=== PATIENT | female | born 1990 | race Hispanic/Latino ===

== ENCOUNTER 2017-04-15 16:47 | Inpatient (IN) | payer OTHER ==
[2017-04-15 17:47] VITALS: BMI 32.8
[2017-04-15] MEDS: Lactated Ringer's 1,000 ML IV SCH ×3 (21:15→23:30)
--- NOTE | 2017-04-15 21:20 | OBADHP ---
Datetime: 04/15/2017 21:09 IP Chief Complaint Other: decreased fm and oligohydramnios by sono IP Adm Impression Other: oligohydraMNIONS BY SONO Admit Comment, IP Provider: Discussed with pt about need for delivert Understands ad agreed. Cervid il orderd Extremities - PN: Normal Abdomen - PN: Abnormal Back - PN: Normal Breast - PN: Normal Lungs - PN: Normal Heart - PN: Normal Thyroid - PN: Normal Neurologic - PN: Normal HEENT - PN: Normal General - PN: Normal Presentation-Admit: Breech FHR - Baseline A Provider: 140-150 Membranes, Provider: Intact Contraction Comments Provider: irregular Comments, ACOG Physical Exam: aBD NT but gravid, ext no calf tenderness Gestation - Est Wks by US: 38.0 IP Hx Assessment: The History has been Reviewed and is Current NICHD Variability Prov Fetus A: Moderate 6-25bpm NICHD Accel Fetus A IP Provider: 10X10 NICHD Decel Fetus A IP Provider: None Dilatation, Provider: 1cm Effacement, Provider: none Station, Provider: H Genitourinary Exam: Normal DTRs - PN: Normal IP Adm Impression: Term, intrauterine IP Admit Plan: Admit to unit; Initiate labor induction protocol
[2017-04-15 21:27] LABS: BASO # 0.1 K/uL (0.0-0.2); BASO % 0.6 % (0.0-2.0); EOS % 0.4 % (0.0-4.0); HEMATOCRIT 32.8 % (34.0-47.0); LYMPH # 2.2 K/uL (1.0-4.3); LYMPH % 20.8 % (20.0-40.0); MEAN CELL VOLUME 82.1 fl (81.0-99.0); MEAN CORPUSCULAR HEMOGLOBIN 26.7 pg (27.0-31.0); MEAN CORPUSCULAR HGB CONC 32.5 g/dL (33.0-37.0); MEAN PLATELET VOLUME 10.6 fl (7.2-11.7); MONO # 0.5 K/uL (0.0-0.8); MONO % 4.5 % (0.0-10.0); NEUT # 7.7 K/uL (1.8-7.0); NEUT % 73.7 % (50.0-75.0); RED CELL DISTRIBUTION WIDTH 15.1 % (11.5-14.5); WHITE BLOOD COUNT 10.4 K/uL (4.8-10.8)
[2017-04-16] MEDS: Lactated Ringer's 1,000 ML IV SCH (07:51)
[2017-04-16] MEDS ORDERED: Oxytocin 30 UNITS in Sodium Chloride 0.9% 500 ML IV ONE (21:28)
[2017-04-16] MEDS ORDERED: Fentanyl/Bupivacaine HCl 250 ML EPI ONE (23:24)
[2017-04-17] MEDS ORDERED: Lidocaine 1% Inj (20ml) ONE (06:05)
--- NOTE | 2017-04-17 07:14 | OBDS ---
[employer] Delivery Doctor: Tabitha Muniz MD MATERNAL INFORMATION Delivery Anesthesia: Epidural Estimated Blood Loss (ml): 250cc Other Maternal Complications: oligohydramnios Provider Comments: Delivered a living baby boy appears term cried spontaneously 9/9, AF clear placenta complete and intact Episiotomy done and repaired as above, no complications Tolerated proced ure well, uterus contracted well No complications Rectal done no defects LABOR SUMMARY [facility]: 04/29/2017 00:00 No. Babies in Womb: 1 Attempted: No Labor Anesthesia: Epidural LABOR INFORMATION Reason for Induction: Oligohydramnios Onset of Labor: 04/17/2017 23:30 Complete Dilatation: 04/17/2017 05:00 Cervical Ripening Agents: Cytotec @ (Annotations: 50 mcg ) Oxytocin: Induction Group B Beta Strep: Negative Steroids Given: None Reason Steroids Not Administered: Not Applicable MEMBRANES Membranes Rupture Method: Spontaneous Rupture of Membranes: 04/16/2017 04:00 Amniotic Fluid Color: Clear Amniotic Fluid Amount: Small STAGES OF LABOR Stage 1 hrs: -18 Stage 1 min: -30 VAGINAL DELIVERY Episiotomy: Median Laceration Extension: First Degree Laceration Type: None Laceration Repair Note: A median 1-2nd dg episiotomy repaired with 2-0 chromic without any complicat ions No lacerations noted Sponge Count Correct: Yes Sharps Count Correct: Yes Count Comment: count correct and confirned CSECTION DELIVERY Primary Indication: N/A Secondary Indication: N/A CSection Incision: N/A BABY A INFORMATION Born in Route : No : N/A Forceps: N/A Vacuum Extraction: N/A Shoulder Dystocia : No PRESENTATION/POSITION BABY A Presentation: Cephalic Cephalic Presentation: Vertex INFORMATION BABY A Gestational Age at Delivery: 39.4
[2017-04-17] MEDS ORDERED: Oxycodone/Acetaminophen 5/325 mg Tab PO PRN (07:17)
[2017-04-17] MEDS ORDERED: Benzocaine/Menthol SPRAY TOP PRN ×2 (07:17→12:02)
[2017-04-17] MEDS ORDERED: Oxytocin 30 UNITS in Sodium Chloride 0.9% 500 ML IV SCH (07:45)
[2017-04-18] MEDS ORDERED: Lansinoh for Breast Feeding Mothers TP ONE (06:55)
[2017-04-18 07:49] LABS: HEMATOCRIT 29.7 % (34.0-47.0); MEAN CELL VOLUME 83.2 fl (81.0-99.0); MEAN CORPUSCULAR HEMOGLOBIN 26.4 pg (27.0-31.0); MEAN CORPUSCULAR HGB CONC 31.7 g/dL (33.0-37.0); RED CELL DISTRIBUTION WIDTH 15.4 % (11.5-14.5)
[2017-04-18 08:05] LABS: WHITE BLOOD COUNT 16.1 K/uL (4.8-10.8)
[2017-04-18] MEDS: Oxycodone/Acetaminophen 5/325 mg Tab PO PRN (10:15)
--- NOTE | 2017-04-18 10:32 | OBPPN ---
Datetime: 04/18/2017 10:27 PP Pain Prov: Within normal limits PP Nausea Prov: Denies PP Flatus Prov: Yes PP BM Prov: No PP Breasts Prov: Normal PP Heart Prov: Normal PP Lungs Prov: Normal PP Abdomen/Uterus Prov: Normal PP Lochia Prov: Normal PP Vulva/Perineum Prov: Normal PP CVA Tenderness Prov: Normal PP Extremities Prov: Normal PP Progress Prov: Normal PP Impression Prov: Normal progression PP Plan Prov: Continue present management PP Progress Note Prov: stable ppd1 continue present care IP PP Procedures: None Vital Signs Provider PP: Reviewed; Within Normal Limits
[2017-04-19] MEDS: Oxycodone/Acetaminophen 5/325 mg Tab PO PRN (02:41)
--- NOTE | 2017-04-19 10:47 | OBPPN ---
Datetime: 04/19/2017 10:39 PP Pain Prov: Within normal limits PP Pain Prov comment: No Sob, chest or leg pains PP Nausea Prov: Denies PP Flatus Prov: Yes PP Breasts Prov: Normal PP Lungs Prov: Normal PP Abdomen/Uterus Prov: Abnormal PP Lochia Prov: Normal PP Vulva/Perineum Prov: Abnormal PP CVA Tenderness Prov: Normal PP Extremities Prov: Normal PP C/S Incision Prov: Not Applicable PP Progress Prov: Normal PP Comments Phys Exam Prov: breast not engorged NT Fundus firm below the umb. NT Perineum repaired Ext no calf tenderness PP Impression Prov: Normal progression PP Plan Prov: Discharge PP Progress Note Prov: D/C home and follow up office 4-6 wks IP PP Procedures: None Vital Signs Provider PP: Reviewed
--- NOTE | 2017-04-19 10:49 | OBDCSUM ---
Datetime: 04/19/2017 10:45 Discharged to, Provider: Home Follow up at, Provider: dr Muniz Disch Instr Activity: Bedrest; May be up to bathroom; May be up for meals; May Shower Disch Instr Diet: Regular Discharge Instructions, Provider: Routine instructions given Discharge Diagnosis, Provider: Term Delivered Discharge Time: 04/19/2017 10:45 Follow up in weeks, Provider: 4-6 wks Disch Referrals: None Contraception discussed, Prov: Yes Disch Activity Restrictions: No exercising; No lifting; No driving; Minimize walking; Minimize stair -climbing; No sexual activity; Nothing in vagina - [place], tampons, douche Discharge Comment, Provider: continue PNC vit and iron and bed and pelvic rest Instructions given Discharge Diagnosis Prov Other: oligohydramnios Contraception after Delivery: Undecided
[2017-04-19 18:28] VITALS: BP 127/73; PULSE 85; RESP 20; TEMP 98.7; O2SAT 99
== END 2017-04-19 13:10 | disposition home or self-care (01) | DRG 775 ==
LOC: H.EROB2 16:47 → H.L&D 18:08 → H.OB/GYN 04-17 11:53
PROVIDERS: ADMIT Specialist; ATTEND Specialist
PROC: 4A1HXCZ Monitoring of Products of Conception, Cardiac Rate, External Approach (ICD-10-PCS; 2017-04-15)
PROC: 10E0XZZ Delivery of Products of Conception, External Approach (ICD-10-PCS; principal; 2017-04-17)
PROC: 0HQ9XZZ Repair Perineum Skin, External Approach (ICD-10-PCS; 2017-04-17)
PROC: 0W8NXZZ Division of Female Perineum, External Approach (ICD-10-PCS; 2017-04-17)
PROC: 3E0P3VZ Introduction of Hormone into Female Reproductive, Percutaneous Approach (ICD-10-PCS; 2017-04-17)
DX: O41.03X0 Oligohydramnios, third trimester, not applicable or unspecified (principal); O36.8130 Decreased fetal movements, third trimester, not applicable or unspecified; O70.0 First degree perineal laceration during delivery; Z37.0 Single live birth; Z3A.39 39 weeks gestation of pregnancy

== ENCOUNTER 2018-04-04 15:43 | Emergency (ER) | payer BC, OTHER ==
--- NOTE | 2018-04-04 16:32 | OBHP ---
Datetime: 04/04/2018 16:16 IP Adm Impression Other: twin preg at 25+ wks; s/p trauma IP Admit Plan: Observation/Evaluation IP Admit Plan Other: monitoring Admit Comment, IP Provider: pt refers this am at midnight fell down and landed on her hand and knees no direct trauma to the abdomen Refers both babies moving well Denies any bleeding, ROM or any abdom inal trauma or pains. Will keep on monitor Pt explained the situation and the plan of action and und erstands and agreed Extremities - PN: Abnormal Abdomen - PN: Abnormal Back - PN: Normal Breast - PN: Not Done Lungs - PN: Normal Heart - PN: Normal Thyroid - PN: Normal Neurologic - PN: Normal HEENT - PN: Normal General - PN: Normal FHR - Baseline A Provider: 150 x2 Membranes, Provider: Intact Contraction Comments Provider: none seen Comments, ACOG Physical Exam: Abd soft NT gravid at 28 cm above sp, no sign of trauma SVE as above n o edidence of bleeding or ROM, Ext no edema or calf tenderness but abrassion superficial on left chapman llar area and left digits in hand. Gestation - Est Wks by US: 25+ wks Pool Provider: Negative IP Hx Assessment: The History has been Reviewed and is Current Vital Signs Provider: Reviewed IP Chief Complaint: Trauma/Fall NICHD Variability Prov Fetus A: Moderate 6-25bpm NICHD Decel Fetus A IP Provider: None Dilatation, Provider: int os closed Effacement, Provider: none Station, Provider: high Genitourinary Exam: Normal DTRs - PN: Normal
[2018-04-05 11:08] VITALS: BP 111/67; PULSE 91; RESP 18; TEMP 98.4; O2SAT 99
== END 2018-04-04 19:50 | disposition home or self-care (01) ==
LOC: H.EROB2 15:43
DX: O26.92 Pregnancy related conditions, unspecified, second trimester (principal); Z04.3 Encounter for examination and observation following other accident; Z3A.25 25 weeks gestation of pregnancy

== ENCOUNTER 2018-06-08 13:22 | Emergency (ER) | payer BC ==
[2018-06-08 13:48] VITALS: BMI 34.3
[2018-06-08] MEDS ORDERED: Betamethasone Soluspan 30 mg/5mL Inj Susp IM ONE (13:51)
--- NOTE | 2018-06-08 15:22 | OBHP ---
Datetime: 06/08/2018 15:12 IP Adm Impression: , intrauterine ; No Active Labor IP Chief Complaint Other: twin gest/malpresentation for steroid administration IP Adm Impression Other: steroid administration of twins IP Admit Plan: Observation/Evaluation IP Admit Plan Other: steroid administration Admit Comment, IP Provider: pt seen for steroid administration as per perinatologist [place] give n and NST done reactive Will repeat tomorrow Instructions given Pt understands and agreed Extremities - PN: Normal Abdomen - PN: Abnormal Back - PN: Not Done Breast - PN: Not Done Lungs - PN: Normal Thyroid - PN: Normal Neurologic - PN: Not Done HEENT - PN: Normal General - PN: Normal Presentation-Admit: C/T FHR - Baseline A Provider: 140/150 Membranes, Provider: Intact Contraction Comments Provider: irreg Comments, ACOG Physical Exam: Abd gravid, NT, fundus at term NT; ext no calf tenderness Gestation - Est Wks by US: 34+ EGA AdmitDate IP: 34.5 IP Chief Complaint: Other NICHD Variability Prov Fetus A: Moderate 6-25bpm NICHD Accel Fetus A IP Provider: 10X10 NICHD Decel Fetus A IP Provider: None Dilatation, Provider: closed Effacement, Provider: none Genitourinary Exam: Normal DTRs - PN: Normal
--- NOTE | 2018-06-09 15:33 | OBHP ---
Datetime: 06/09/2018 15:30 IP Adm Impression: , intrauterine ; No Active Labor IP Admit Plan: Observation/Evaluation; Discharge home Admit Comment, IP Provider: Patient is a 28-year-old 2 para 1 estimated due date 214 patient presents to labor and delivery for the administration of steroids. This complicated by twi n gestation patient reports good movement no vaginal bleeding or leakage of fluid. Patient celso es any other complications. Past medical history none Past surgical history none No known drug allergies Social history denies alcohol tobacco use Patient denies any complications Review of systems patient denies headache chest pain shortness of breath palpitations nausea vomit ing diarrhea heat or cold intolerance easy bruisability musculoskeletal or neurological complaints Twin gestation 34 weeks Patient referred by PMD for steroid administration External monitor Observation Patient to follow up with PMD Pelvic Type - PN: Not Done Extremities - PN: Not Done Abdomen - PN: Normal Back - PN: Not Done Breast - PN: Not Done Lungs - PN: Not Done Heart - PN: Not Done Thyroid - PN: Not Done Neurologic - PN: Normal HEENT - PN: Normal General - PN: Normal EGA AdmitDate IP: 34.6 Vital Signs Provider: Reviewed IP Chief Complaint: Other Genitourinary Exam: Not Done DTRs - PN: Not Done
== END 2018-06-08 14:42 | disposition home or self-care (01) ==
LOC: H.EROB2 13:22
DX: O30.003 Twin pregnancy, unspecified number of placenta and unspecified number of amniotic sacs, third trimester (principal); Z23 Encounter for immunization; Z3A.34 34 weeks gestation of pregnancy
CPT/HCPCS: 96372; 99281; J0702

== ENCOUNTER 2018-06-09 13:38 | Emergency (ER) | payer BC ==
[2018-06-09 14:07] VITALS: BMI 35.5
[2018-06-09] MEDS ORDERED: Betamethasone Soluspan 30 mg/5mL Inj Susp IM ONE (14:28)
[2018-06-09 20:41] VITALS: BP 110/60; PULSE 82
== END 2018-06-09 15:35 | disposition home or self-care (01) ==
LOC: H.EROB2 13:38
DX: O30.003 Twin pregnancy, unspecified number of placenta and unspecified number of amniotic sacs, third trimester (principal); Z3A.34 34 weeks gestation of pregnancy; Z23 Encounter for immunization
CPT/HCPCS: 96372; 99281; J0702

== ENCOUNTER 2018-06-15 06:55 | Inpatient (IN) | payer BC, OTHER ==
[2018-06-15 07:24] VITALS: BMI 37.1
[2018-06-15] MEDS ORDERED: Lactated Ringer's 1,000 ML IV ONE ×3 (07:25→11:21)
[2018-06-15] MEDS ORDERED: cefOXitin IV 1 gm in Dextrose 1 GM/50 ML BAG IVPB ONE (07:28)
[2018-06-15] MEDS ORDERED: Oxytocin 30 UNIT 30 UNITS/500 ML BAG IV ONE (07:31)
[2018-06-15] MEDS ORDERED: OXYTOCIN/0.9 % NS 20 UNIT/1,000 ML BAG IV SCH ×2 (07:45→11:27)
[2018-06-15] MEDS ORDERED: ePHEDrine 50 mg/ml Inj ONE (07:50)
[2018-06-15] MEDS ORDERED: Morphine 1 mg/ml preservative-free Inj(Duramorph) ONE (07:50)
[2018-06-15 08:04] LABS: BASO # 0.1 K/uL (0.0-0.2); BASO % 0.6 % (0.0-2.0); EOS % 0.3 % (0.0-4.0); HEMOGLOBIN 9.6 g/dL (12.0-16.0); LYMPH % 19.1 % (20.0-40.0); MEAN CELL VOLUME 75.3 fl (81.0-99.0); MEAN CORPUSCULAR HEMOGLOBIN 22.8 pg (27.0-31.0); MEAN CORPUSCULAR HGB CONC 30.3 g/dL (33.0-37.0); MEAN PLATELET VOLUME 9.7 fl (7.2-11.7); MONO % 6.3 % (0.0-10.0); NEUT # 11.6 K/uL (1.8-7.0); NEUT % 73.7 % (50.0-75.0); NRBC % 0.4 % (0.0-0.0); RBC 4.2 Mil/uL (3.80-5.20); RED CELL DISTRIBUTION WIDTH 18.1 % (11.5-14.5); WHITE BLOOD COUNT 15.7 K/uL (4.8-10.8)
--- NOTE | 2018-06-15 08:07 | OBADHP ---
Datetime: 06/15/2018 07:48 IP Chief Complaint Other: twin preg at 35+ wks/non reasuring BPP Admit Comment, IP Provider: Had steroids last wk, and had BPP 2x/wk but had been non-reasuring and d iscussed with perinatologist last night that recomended delivery. Pt had been educated about her con dition and understands and agreed. Had requested BTL Discussed risks vs benefits for delivery and un derstand and agreed. Informed consent obtained Extremities - PN: Normal Abdomen - PN: Abnormal Back - PN: Normal Breast - PN: Not Done Lungs - PN: Normal Heart - PN: Normal Thyroid - PN: Not Done Neurologic - PN: Normal HEENT - PN: Normal General - PN: Normal Presentation-Admit: C/B FHR - Baseline A Provider: 140/150 Membranes, Provider: Intact Comments, ACOG Physical Exam: ABD gravid fundus at 40 cm above sp; ext no calf tenderness. Gestation - Est Wks by US: 35+ IP Hx Assessment: The History has been Reviewed and is Current Vital Signs Provider: Reviewed IP Chief Complaint: Other NICHD Variability Prov Fetus A: Minimal - Undetectable to <5bpm NICHD Accel Fetus A IP Provider: 10X10 NICHD Decel Fetus A IP Provider: None Dilatation, Provider: ft Effacement, Provider: 0 Genitourinary Exam: Normal DTRs - PN: Normal EGA AdmitDate IP: 35.5 IP Adm Impression: , intrauterine IP Admit Plan: Admit to unit; Initiate Section protocol Datetime: 06/09/2018 15:30 Pelvic Type - PN: Not Done Datetime: 06/08/2018 15:12 IP Adm Impression Other: steroid administration of twins IP Admit Plan Other: steroid administration Contraction Comments Provider: irreg Datetime: 04/04/2018 16:16 Pool Provider: Negative Station, Provider: high
[2018-06-15] MEDS: Lactated Ringer's 1,000 ML IV SCH (09:14)
[2018-06-15] MEDS ORDERED: DiphenhydrAMINE 50 mg/ml Inj IVP PRN (10:26)
--- NOTE | 2018-06-15 13:25 | OBDS ---
[employer] Delivery Doctor: Tabitha Muniz MD Scrub Nurse: Areli Zacarias [employer] Economist: Loretta Mendoza RN/Derek Bang Anesthesiologist: Tabitha Torres MD MATERNAL INFORMATION Delivery Anesthesia: Spinal Estimated Blood Loss (ml): 800 Maternal Complications: Other Other Maternal Complications: twin gest with malpresentation/ non-reasuring BPP Provider Comments: see dictated surgeons note LABOR SUMMARY [facility]: 07/15/2018 00:00 No. Babies in Womb: 2 Attempted: No Labor Anesthesia: None LABOR INFORMATION Reason for Induction: Not Applicable Group B Beta Strep: Not Done Antibiotics # of Doses: Mefoxin 1 gm-pre op Antibiotics Time of Last Dose: 939 Steroids Given: Full Course Reason Steroids Not Administered: Not Applicable STAGES OF LABOR Stage 3 hrs: 0 Stage 3 min: 3 VAGINAL DELIVERY Episiotomy: None Laceration Extension: N/A Laceration Type: None Laceration Repair: Not Applicable Sponge Count Correct: Yes Sharps Count Correct: Yes Count Comment: count corect x3 CSECTION DELIVERY Primary Indication: Multiple Gestation with malpresentation Other Primary Indication: twins-malpresentation Secondary Indication: Nonreassuring Status CSection Incidence: Primary Labor: No Labor Elective: Elective CSection Incision: Lower Uterine Transverse Other Sterilization Procedure: Modified [place] Uterine Closure: Double-layer closure BABY A INFORMATION Infant Delivery Date/Time: 06/15/2018 10:20 Method of Delivery: Born in Route : No : N/A Forceps: N/A Vacuum Extraction: N/A Shoulder Dystocia : No SHOULDER DYSTOCIA BABY A Infant Delivery Date/Time: 06/15/2018 10:20 PRESENTATION/POSITION BABY A Presentation: Cephalic Cephalic Presentation: Vertex Breech Presentation: N/A PLACENTA INFORMATION BABY A Placenta Delivery Time : 06/15/2018 10:23 Placenta Method of Delivery: Manual Removal Placenta Status: Delivered SCORES BABY A Heart Rate 1 min: >100 bpm Resp Effort 1 min: Good Cry Reflex Irritability 1 min: Cough or Sneeze or Pulls Away Muscle Tone 1 min: Active Motion Color 1 min: Body [place], Extremities Blue Resuscitation Effort 1 min: Tactile Stimulation SCORE 1 MIN: 9 Heart Rate 5 min: >100 bpm Resp Effort 5 min: Good Cry Reflex Irritability 5 min: Cough or Sneeze or Pulls Away Muscle Tone 5 min: Active Motion Color 5 min: Body [place], Extremities Blue Resuscitation Effort 5 min: Tactile Stimulation SCORE 5 MIN: 9 INFORMATION BABY A Gestational Age at Delivery: 35.5 Gestational Status: Infant Outcome : Liveborn Infant Condition : Stable Sex: Male IDENTIFICATION/MEDS BABY A ID Band Number: [id number] ID Band Location: Left Leg; Left Arm Vitamin K Given : Not Given Erythromycin Given: Not Given WEIGHT/LENGTH BABY A Birthweight (gms): 2280 Infant Weight (lb): 5 Infant Weight (oz): 0 CORD INFORMATION BABY A No. Cord Vessels: 3 Nuchal Cord : N/A Cord Blood Taken: Yes Infant Suction: Mouth ASSESSMENT BABY A Infant Complications: None Physical Findings at Delivery: Within Normal Limits Infant Respirations: Appears Normal Knocker Out/ALS Called : No Infant Care By: /Derek [place] Transferred To: Remains with Mother BABY B INFORMATION Delivery Date/Time: 06/15/2018 10:22 Method of Delivery : Born in Route : No : N/A Forceps : N/A Vacuum Extraction: N/A Shoulder Dystocia : No SHOULDER DYSTOCIA BABY B Infant Delivery Date/Time: 06/15/2018 10:22 PRESENTATION/POSITION BABY B Presentation : transverse ROM/PLACENTA INFO BABY B Rupture of Membranes: 06/15/2018 10:22 Length of Rupture (hrs): 0.00 Placenta Delivery Time : 06/15/2018 10:23 Placenta Method of Delivery: Manual Removal Placental Status : 1023 SCORES BABY B Heart Rate 1 min: >100 bpm Resp Effort 1 min: Good Cry Reflex Irritability 1 min: Cough or Sneeze or Pulls Away Muscle Tone 1 min: Active Motion Color 1 min: Body [place], Extremities Blue Resuscitation Effort 1 min: Tactile Stimulation SCORE 1 MIN: 9 Heart Rate 5 min: >100 bpm Resp Effort 5 min: Good Cry Reflex Irritability 5 min: Cough or Sneeze or Pulls Away Muscle Tone 5 min: Active Motion Color 5 min: Body [place], Extremities Blue Resuscitation Effort 5 min: Tactile Stimulation SCORE 5 MIN: 9 INFORMATION BABY B Gestational Age at Delivery: 35.5 Gestational Status : Infant Outcome : Liveborn Condition : Stable Infant Sex : Male IDENTIFICATION/MEDS BABY B ID Band Number : [id number] ID Band Location : Left Leg; Left Arm Vitamin K Given : Not Given Erythromycin Given : Not Given WEIGHT/LENGTH BABY B Birthweight (gms): 3355 Infant Weight (lb) : 7 Weight (oz): 6 CORD INFORMATION BABY B No. Cord Vessels : 3 Nuchal Cord : N/A Cord Blood Taken : Yes Infant Suction : Mouth
[2018-06-15] MEDS: cefOXitin IV 1 gm in Dextrose 1 GM/50 ML BAG IVPB SCH (18:20)
[2018-06-16] MEDS: cefOXitin IV 1 gm in Dextrose 1 GM/50 ML BAG IVPB SCH ×2 (02:08→12:31)
[2018-06-16] MEDS: Lactated Ringer's 1,000 ML IV SCH ×4 (02:13→23:30)
[2018-06-16 06:44] LABS: MEAN CELL VOLUME 74.3 fl (81.0-99.0); MEAN CORPUSCULAR HEMOGLOBIN 23.1 pg (27.0-31.0); MEAN CORPUSCULAR HGB CONC 31.1 g/dL (33.0-37.0); RBC 3.45 Mil/uL (3.80-5.20); RED CELL DISTRIBUTION WIDTH 18.2 % (11.5-14.5); WHITE BLOOD COUNT 15.8 K/uL (4.8-10.8)
--- NOTE | 2018-06-16 08:09 | OBPPN ---
Datetime: 06/16/2018 08:02 PP Pain Prov: Within normal limits PP Pain Prov comment: No SOB, chest or leg pains PP Nausea Prov: Denies PP Flatus Prov: No PP BM Prov: No PP Nausea Prov comment: No dizziness PP Breasts Prov: Normal PP Lungs Prov: Normal PP Abdomen/Uterus Prov: Abnormal PP Lochia Prov: Normal PP Vulva/Perineum Prov: Normal PP CVA Tenderness Prov: Normal PP Extremities Prov: Abnormal PP C/S Incision Prov: Normal PP Progress Prov: Normal PP Comments Phys Exam Prov: breast not engorged breast feeding; Abd soft ND depressible fundus firm at umb, dressing intact no sign of active bleeding; Perineum i ntact, ext mild bilateral edema but no calf tenderness. PP Impression Prov: Normal progression PP Plan Prov: Continue present management PP Impression Other Prov: anemia PP Progress Note Prov: advance diet as tolerated, OOB with help Start on po iron. IP PP Procedures: None Vital Signs Provider PP: Reviewed
[2018-06-16] MEDS: Oxycodone/Acetaminophen 5/325 mg Tab PO PRN ×2 (10:25→15:55)
[2018-06-17] MEDS: Oxycodone/Acetaminophen 5/325 mg Tab PO PRN (00:42)
--- NOTE | 2018-06-17 07:08 | OBPPN ---
Datetime: 06/17/2018 07:04 PP Pain Prov: Within normal limits PP Pain Prov comment: no SOB, chest or leg pains PP Nausea Prov: Denies PP Flatus Prov: Yes PP BM Prov: No PP Nausea Prov comment: denies C/F PP Breasts Prov: Normal PP Lungs Prov: Normal PP Abdomen/Uterus Prov: Abnormal PP Lochia Prov: Normal PP Vulva/Perineum Prov: Normal PP CVA Tenderness Prov: Normal PP Extremities Prov: Abnormal PP C/S Incision Prov: Normal PP Progress Prov: Normal PP Comments Phys Exam Prov: breast NE,NT, breast feeding; Abd soft ND fundus firm below the umb. Incision clean and dry no suppt or discharge, sutures in pl shantal. Ext anisa pedal edema but no calf tenderness. PP Impression Prov: Normal progression PP Plan Prov: Continue present management PP Progress Note Prov: Dulcolax suppt this pm if no bm, OOB and ambulation Continue PP and po care IP PP Procedures: None Vital Signs Provider PP: Reviewed
[2018-06-18] MEDS: Lactated Ringer's 1,000 ML IV SCH ×2 (02:34→15:04)
--- NOTE | 2018-06-18 14:02 | OBPPN ---
Datetime: 06/18/2018 13:56 PP Pain Prov: Within normal limits PP Pain Prov comment: No SOB chest or leg pains PP Nausea Prov: Denies PP Flatus Prov: Yes PP BM Prov: Yes PP Nausea Prov comment: voiding well PP Breasts Prov: Normal PP Lungs Prov: Normal PP Abdomen/Uterus Prov: Abnormal PP Lochia Prov: Normal PP Vulva/Perineum Prov: Normal PP CVA Tenderness Prov: Normal PP Extremities Prov: Abnormal PP C/S Incision Prov: Normal PP Progress Prov: Normal PP Comments Phys Exam Prov: breast feeding Not engorged; Abd soft nd, depressible fundus firm, incis ion clean and dry no suppt or active bleeding; Ext mild anisa edema but no calf tenderness PP Impression Prov: Normal progression PP Plan Prov: Discharge PP Progress Note Prov: D/C home with intructions and follow up office 1 wk IP PP Procedures: None Vital Signs Provider PP: Reviewed
--- NOTE | 2018-06-18 14:04 | OBDCSUM ---
Datetime: 06/18/2018 14:01 Discharged to, Provider: Home Follow up at, Provider: Dr Muinz Disch Instr Activity: Bedrest; May be up to bathroom; May be up for meals; May Shower Disch Instr Diet: Regular Discharge Instructions, Provider: Routine instructions given Discharge Diagnosis, Provider: Delivery Follow up in weeks, Provider: 1 wk Contraception discussed, Prov: Yes Disch Activity Restrictions: No exercising; No lifting; No driving; Minimize walking; Minimize stair -climbing; No sexual activity; Nothing in vagina - [place], tampons, douche Discharge Comment, Provider: rx for percocet and continue PNC vit and iron Discharge Diagnosis Prov Other: twin preg at 35+ wks/Non-reasuring BPP/ malpresentation Contraception after Delivery: Tubal Ligation
--- NOTE | 2018-06-18 20:18 | OP ---
PROCEDURE DATE: 06/15/2018 PREOPERATIVE DIAGNOSES: 1. Twin gestation at 35 plus weeks. 2. Multiparity. 3. Malpresentation. 4. Nonreassuring biophysical profiles. POSTOPERATIVE DIAGNOSES: 1. Twin gestation at 35 plus weeks. 2. Multiparity. 3. Malpresentation. 4. Nonreassuring biophysical profiles. PROCEDURE PERFORMED: Primary low transverse segment section and bilateral tubal ligation using a modified pulmonary procedure. SURGEON: Sherman Muniz MD SALT WASHER: Elijah Sanders MD. Dr. Sanders was present for the entire duration of the case. [employer] needed in positioning the patient, opening up the abdomen, delivery of the babies, and closure of the abdomen. No qualified resident intern was present at this time. ANESTHESIA USED: Spinal. ANESTHESIOLOGIST: Donis Torres MD ESTIMATED BLOOD LOSS: 800 mL. DRAINS USED: None. REPLACEMENT USED: None. FINDINGS: 1. Delivered twin A living baby boy in a cephalic presentation. Baby cried spontaneously. Pediatrist in attendance. score of 9 and 9. Amniotic fluid clear. 2. Delivered twin B in a transverse position. Delivered in a breech presentation. Baby appears adequate for gestational age, cried spontaneously. score of 9 and 9. Amniotic fluid clear. 3. Placenta complete and intact. 4. Both tubes and ovaries appeared grossly within normal limits to inspection bilaterally. 5. Bilateral tubal ligation using a modified Greenback procedure was performed without any complication. DESCRIPTION OF THE PROCEDURE: The patient was taken to the operating room and placed on the operating room table in a supine position. Following induction of spinal anesthesia, the patient was then replaced in a supine position. A Hinton catheter had been inserted into the bladder and was draining clear fluid. Venodyne boots were applied to both legs. At this time, the abdomen was then draped and prepped in a usual sterile manner. Anesthesia tested and found to be well secured. A Pfannenstiel incision was then made using sharp dissection two fingerbreadths above the symphysis pubis. The incision was then extended down to the subcutaneous tissue, also using sharp dissection. Hemostasis was obtained by means of electrocoagulation. The fascia was then identified, was then entered at the midline. The incision and the fascia was then extended laterally in each direction in a semi curvilinear fashion using sharp dissection. At this time, the rectus muscle was then identified, was then slit in the midline, exposing the peritoneum. Peritoneal layer was then picked up using two Osiris clamps, retracted superiorly and then entered using sharp dissection. An incision on the peritoneum was then extended superiorly and inferiorly under direct visualization. The bladder was then identified, it was then retracted inferiorly using the Sherry retractor. The low transverse segment of the uterus was then identified and the visceroperitoneum covering this area was then entered using sharp dissection. Using blunt dissection, a bladder flap was then created and retracted inferiorly using the same Sherry retractor. At this time, we then proceeded to make an incision on the low transverse segment of the uterus. Upon entering the uterine cavity, the first bag appears to have clear fluid. The incision was then extended laterally on each direction using bandage scissors. Using amnioscopy procedure, twin A was then delivered in a cephalic presentation. The baby appears adequate for gestational age. The baby cried spontaneously, was aspirated using a bulb suction. The umbilicus was then doubly clamped, cut and the baby was handed to the pediatric personnel who was standing by. At this time, the second sac appears to be intact. It was ruptured and clear fluid noted to be present and a living baby boy was then delivered. Baby appears to be in a transverse situation, but he was delivered in a breech position using procedure. The baby appears adequate for gestational age. The baby cried spontaneously, was aspirated using a bulb suction. The umbilicus was then doubly clamped, cut and the baby handed to the pediatric personnel who was standing by. At this time, samples of cord blood were then obtained from baby A and baby B. The placenta was then delivered complete and intact. Uterus was then exteriorized to provide better visualization. The uterine cavity was then thoroughly cleaned using moist lap pads and the uterus was massaged and contracted well. At this time, the uterine incision was then secured using multiple T-clamps and was then approximated using 0 Vicryl suture in a continuous interlocking manner. Hemostasis checked and found to be well secured. A second layer was also applied using 0 Vicryl suture in a continuous manner. At this time, the bladder flap was then approximated using 2-0 Vicryl in a continuous manner. Free amniotic fluid and blood evacuated from the pelvic cavity. Both tubes and ovaries appeared grossly within normal limits to inspection bilaterally. At this time, the patient again agreed to her desire for tubal sterilization. The right fallopian tube was then followed to its fimbriated end and was grasped at the ampullary area using a Pearson clamp and retracted superiorly. A 2-0 chromic was then placed to the mesosalpinx and the ampullary region of the tube was then ligated. A free 2-0 chromic free tie was then placed underneath the ligature and the ligated section of the tube was then resected and sent to pathology for proper pathological evaluation. The same procedure was then performed in the left side without any complications. Following bilateral tubal sterilization, all operative areas checked and hemostatically secured. The uterus was then allowed to retract back in to its original position. All operative areas checked, hemostatically secured. The pelvic cavity again irrigated using saline solution. Again, all operative areas were hemostatically secured. The peritoneum was then closed using 0 Vicryl suture in a continuous manner. The rectus muscle was also approximated in the midline also using 0 Vicryl suture in a continuous manner. At this time, the fascia was then identified, was then approximated using 1 Vicryl suture in a continuous manner. Fascia was then checked and found to be free of defect. Subcutaneous tissue was then irrigated using saline solution, hemostatically secured and approximated using several interrupted 2-0 plain sutures. The skin was then approximated using a 3-0 Prolene in a subcuticular fashion. Steri-Strips were then applied. The patient tolerated the procedure well. There were no complications. Clear fluid noted to be present in the Hinton bag at this time. Sponge, instruments, and needle counts were correct x3. Sherman Muniz MD
[2018-06-19 00:56] VITALS: BP 108/58; PULSE 99; RESP 20; TEMP 97.9; O2SAT 99
== END 2018-06-18 15:30 | disposition home or self-care (01) | DRG 785 ==
LOC: H.L&D 07:25 → H.OB/GYN 13:57
PROVIDERS: ADMIT Specialist; ATTEND Specialist
PROC: 10D00Z1 Extraction of Products of Conception, Low, Open Approach (ICD-10-PCS; principal; 2018-06-15)
PROC: 0UB70ZZ Excision of Bilateral Fallopian Tubes, Open Approach (ICD-10-PCS; 2018-06-15)
PROC: 4A1HXCZ Monitoring of Products of Conception, Cardiac Rate, External Approach (ICD-10-PCS; 2018-06-15)
DX: O60.14X2 Preterm labor third trimester with preterm delivery third trimester, fetus 2 (principal); O60.14X1 Preterm labor third trimester with preterm delivery third trimester, fetus 1; O30.003 Twin pregnancy, unspecified number of placenta and unspecified number of amniotic sacs, third trimester; Z3A.35 35 weeks gestation of pregnancy; Z37.2 Twins, both liveborn; O32.1XX2 Maternal care for breech presentation, fetus 2; O66.0 Obstructed labor due to shoulder dystocia

== ENCOUNTER 2018-07-31 17:44 | Emergency (ER) | payer BC ==
[2018-07-31 17:44] VITALS: BMI 37.1
[2018-07-31 17:51] VITALS: O2SAT 99
--- NOTE | 2018-07-31 19:03 | ED PDOC ---
HPI: General Adult Time Seen by Provider: 07/31/18 17:58 Chief Complaint (Nursing): Abnormal Skin Integrity Chief Complaint (Provider): Breast Pain History Per: Patient Onset/Duration Of Symptoms: Days Current Symptoms Are (Timing): Still Present Additional Complaint(s): 28 y/o female presents to the ED for evaluation of right breast pain. Patient is three weeks postpardum and is currently breast feeding. Patient states she has been experiencing two days of pain to the breast, just below the nipples with swelling and slight redness. Patient reports of developing some pain to the right axilla. Patient notes pain worsens when her latches and when she tries to pump. Otherwise, is otherwise feeding fine from the left breast. Patient denies fever and chills ACADEMIC INTERVENTIONIST: Dr. Muniz Past Medical History Reviewed: Historical Data, Nursing Documentation, Vital Signs Vital Signs: Last Vital Signs Temp 99.3 F 07/31/18 17:50 Pulse 88 07/31/18 17:50 Resp 16 07/31/18 17:50 BP 126/80 07/31/18 17:50 Pulse Ox 99 07/31/18 17:50 - Medical History PMH: No Chronic Diseases Denies: Depression, Diabetes, HTN - Surgical History Surgical History: Other surgeries: Tubal Ligation - Family History Family History: States: No Known Family Hx - Social History Current smoker - smoking cessation education provided: No - Home Medications Home Medications: Ambulatory Orders Medication Instructions Recorded Vit Calc,Iron,Folic 1 tab PO DAILY 04/15/17 [ Vitamins] Amoxicillin/Clavulanate [Augmentin 1 tab PO BID #14 tab 07/31/18 875 MG-125 MG] Ibuprofen [Motrin Tab] 600 mg PO Q8 PRN #60 tab 07/31/18 - Allergies Allergies/Adverse Reactions: Allergies Allergy/AdvReac Type Severity Reaction Status Date / Time No Known Allergies Allergy Verified 06/15/18 07:24 Review of Systems ROS Statement: Except As Marked, All Systems Reviewed And Found Negative (As per HPI) Constitutional: Positive for: Other (right axilla pain) Cardiovascular: Positive for: Other (Right Breast Pain) Physical Exam - Reviewed Nursing Documentation Reviewed: Yes Vital Signs Reviewed: Yes - Physical Exam Appears: Positive for: Well (well nourished), Non-toxic, In Acute Distress (mild painful distress) Head Exam: Positive for: ATRAUMATIC, NORMOCEPHALIC Skin: Positive for: Warm, Dry Cardiovascular/Chest: Positive for: Other (Right breast engorgement with mild erythema at the 6 o'clock position of the areola. A raised 0.5 cm lesion noted to a slight point and tenderness to palpation of the side. Mild induration surrounding the lesion additionally noted. Left Breast within normal limits. ) Respiratory: Negative for: Respiratory Distress Extremity: Positive for: Other (No palpaple axillary lymph node) Lymphatic: Negative for: Axilla Node Tenderness - ECG O2 Sat by Pulse Oximetry: 99 (RA) Pulse Ox Interpretation: Normal Medical Decision Making Medical Decision Making: Time: 1818 Impression: Mastitis Plan: -- Motrin 600 mg PO -- Advised patient to continue to breast feed and/or pump as much as possible as well as use alternating warm and cold compresses at sight to help soothe symptoms. Patient strongly advised to follow up with ACADEMIC INTERVENTIONIST within a week. Scribe Attestation: Documented by Cleve Sosa, acting as a scribe for Rachael Barclay MD. Provider Scribe Attestation: All medical record entries made by the Scribe were at my direction and personally dictated by me. I have reviewed the chart and agree that the record accurately reflects my personal performance of the history, physical exam, medical decision making, and the department course for this patient. I have also personally directed, reviewed, and agree with the discharge instructions and disposition. Disposition - Clinical Impression Clinical Impression: Mastitis, right, acute - Disposition Referrals: Sherman Muniz MD [Staff Provider] - 08/02/18 (FOLLOWUP WITH DR MUNIZ NEXT WEEK FOR REEVALUATUION) Disposition: Routine/Home Disposition Time: 18:15 Condition: STABLE Prescriptions: Amoxicillin/Clavulanate [Augmentin 875 MG-125 MG] 1 tab PO BID #14 tab Ibuprofen [Motrin Tab] 600 mg PO Q8 PRN #60 tab PRN Reason: Pain, Moderate (4-7) Instructions: Mastitis (DC), Common Problems
[2018-07-31 19:08] VITALS: BP 116/75; PULSE 84; RESP 18; TEMP 99
== END 2018-07-31 18:20 | disposition home or self-care (01) ==
LOC: H.ER 17:44
DX: N63.0 Unspecified lump in unspecified breast (principal)